=== PATIENT | female | born 1940 | race Caucasian/White ===

== ENCOUNTER 2018-10-10 14:24 | Emergency (ER) | payer OTHER ==
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
[2018-10-10 16:20] VITALS: BP 121/55
--- NOTE | 2018-10-10 17:03 | ASDISCHSUM ---
Discharge Information Plan Status:Home with No Needs Medically Cleared to Leave: Discharge Date:10/10/2018 04:30 PM CM D/C Disposition:Home, Routine, Self-Care ADT D/C Disposition:Home, Routine, Self-Care Projected Discharge Date:10/10/2018 04:30 PM Transportation at D/C:Cab Voucher Discharge Delay Reason: Follow-Up Date:10/10/2018 04:30 PM Discharge Slot: Final Diagnosis: Placement Information Patient Contact Information Contact Name:DEBRA Relationship:Fahad Address: Work Phone: City: [facility] Phone: State/Zip Code: Email: Financial Information Financial Class:Medicare Advantage Plans Primary Plan Desc:[employer]ICARE Primary Plan Number:[id number] Secondary Plan Desc: Secondary Plan Number: Assessment Information Intervention Information Intervention Type:Cab Vouchers Date of Service:10/10/2018 05:01 PM Patient Type:Emergency Room Staff Member:YARI Thao Sharon Hours:0.5 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 Spoke w/pt about transportation home and if there was a [place] one to assist her at home. Pt spoke to several neighbors and friends but no o ne is able to come pick her up but they c an meet her once she arrives at the building and assist with dinner or oth er needs. Pt's son returns to [place] tomorrow. Cab voucher provided.
== END 2018-10-10 16:30 | disposition home or self-care (01) ==
DX: S89.92XA Unspecified injury of left lower leg, initial encounter (principal); V18.0XXA Pedal cycle driver injured in noncollision transport accident in nontraffic accident, initial encounter; Y93.55 Activity, bike riding
CPT/HCPCS: 73564; 99283; L1830